=== PATIENT | male | born 1975 | race African-American/Black ===

== ENCOUNTER 2019-08-23 00:11 | Emergency (ER) | payer SELFPAY ==
[~2019-08-23] VITALS: Ht 188 cm; Wt 112.0 kg
[2019-08-23 00:47] VITALS: BP 183/117
[2019-08-23] MEDS ORDERED: ACETAMINOPHEN 500MG TABLET PO ONE (01:30)
[2019-08-23] MEDS ORDERED: DEXAMETHASONE 4MG TABLET PO ONE (01:30)
== END 2019-08-23 02:50 | disposition home or self-care (01) ==
LOC: ER 00:11
DX: R42 Dizziness and giddiness (principal); R51 Headache; Z48.1 Encounter for planned postprocedural wound closure
CPT/HCPCS: 99284